=== PATIENT | female | born 1965 | race Caucasian/White ===

== ENCOUNTER 2021-10-28 08:31 | Emergency (ER) | payer OTHER ==
[~2021-10-28 08:31] MED LIST: AMLODIPINE BESYL5 MG PO; ASPIRIN EC81 MG PO; BACLOFEN20 MG PO; CETIRIZINE HCL10 MG PO; FLAGYL500 MG PO; FUROSEMIDE10 MG/1 M1 IVP; GABAPENTIN400 MG PO; HYDROCODON-ACE1 EAC6 PO; HYDROXYZINE PAM25 MG PO; KLONOPIN0.5 MG PO; LASIX40 MG PO; LEVOFLOXACIN500 MG PO; LIPITOR40 MG PO; LISINOPRIL2.5 MG PO; METOPROLOL TART25 MG PO; NICOTINE PATCH1 EAC1 TD; NITROGLYCERIN0.4 MG SL; NITROSTAT 0.40.4 MG SL; OMEPRAZOLE20 MG PO; VENLAFAXINE HCL75 M1 PO
[2021-10-28 09:17] LABS: HEMOGLOBIN 11.9 gm/dl (12.3-15.3); RED BLOOD COUNT 4.68 M/UL (4.00-5.10); WHITE BLOOD COUNT 10.7 K/UL (4.5-11.0)
[2021-10-28 09:46] LABS: BUN/CREATININE RATIO 8 (0-10)
== END 2021-10-28 11:00 | disposition home or self-care (01) ==
LOC: ER1 08:31
PROVIDERS: Physician Assistant
DX: M79.601 Pain in right arm (principal); M79.662 Pain in left lower leg; M54.2 Cervicalgia; I11.0 Hypertensive heart disease with heart failure; I50.9 Heart failure, unspecified; I25.2 Old myocardial infarction; F17.200 Nicotine dependence, unspecified, uncomplicated; J44.9 Chronic obstructive pulmonary disease, unspecified; E78.5 Hyperlipidemia, unspecified; Z88.0 Allergy status to penicillin
CPT/HCPCS: 71045; 80053; 82550; 82553; 83874; 84484; 85025; 93971; 99284

== ENCOUNTER 2021-12-17 12:43 | Emergency (ER) | payer OTHER ==
[~2021-12-17] VITALS: Ht 154.9 cm; Wt 59.0 kg
[2021-12-17 13:32] LABS: HEMOGLOBIN 11.2 gm/dl (12.3-15.3); RED BLOOD COUNT 4.78 M/UL (4.00-5.10); WHITE BLOOD COUNT 9.9 K/UL (4.5-11.0)
[2021-12-18] MEDS ORDERED: AMLODIPINE BESYL5 MG PO (11:12)
[2021-12-18] MEDS ORDERED: CARVEDILOL12.5 MG PO (11:12)
[2021-12-18] MEDS ORDERED: DOCUSATE SODIU100 MG PO (11:13)
[2021-12-18] MEDS ORDERED: CETIRIZINE HCL10 MG PO (11:13)
[2021-12-18] MEDS ORDERED: HYDROXYZINE PAM25 MG PO (11:15)
[2021-12-18] MEDS ORDERED: IPRAT-ALBUT 0.5-3 ML INH (11:15)
[2021-12-18] MEDS ORDERED: MIRALAX 119 GR119 GM PO (11:16)
[2021-12-18] MEDS ORDERED: LACTULOSE10 GM/15 M PO (11:16)
[2021-12-18] MEDS ORDERED: ASPIRIN EC81 MG PO (11:17)
[2021-12-18] MEDS ORDERED: SERTRALINE HCL50 MG PO (11:19)
[2021-12-18] MEDS ORDERED: QUETIAPINE FUMA25 MG PO (11:19)
[2021-12-18] MEDS ORDERED: FUROSEMIDE40 MG PO (11:19)
[2021-12-18] MEDS ORDERED: CYCLOBENZAPRINE10 MG PO (11:22)
[2021-12-19 08:12] LABS: CORTISOL 21.7 ug/dL (.)
== END 2021-12-19 10:15 | disposition short-term general hospital (02) ==
LOC: ER1 12:43
PROVIDERS: Family Medicine; Internal Medicine
DX: I21.4 Non-ST elevation (NSTEMI) myocardial infarction (principal); I24.9 Acute ischemic heart disease, unspecified; I50.9 Heart failure, unspecified; I25.10 Atherosclerotic heart disease of native coronary artery without angina pectoris; I25.5 Ischemic cardiomyopathy; N28.9 Disorder of kidney and ureter, unspecified; R79.89 Other specified abnormal findings of blood chemistry; E87.1 Hypo-osmolality and hyponatremia; Z20.822 Contact with and (suspected) exposure to COVID-19; F17.200 Nicotine dependence, unspecified, uncomplicated; Z88.0 Allergy status to penicillin; Z88.8 Allergy status to other drugs, medicaments and biological substances; Z91.14 Patient's other noncompliance with medication regimen
CPT/HCPCS: 0240U; 36556; 71045; 80048; 80053; 80307; 81001; 82533; 82550; 82553; 83605; 83735; 83880; 83930; 83935; 84439; 84443; 84484; 85025; 85610; 85730; 93005; 94664; 94760; 96374; 96375; 96376; 99285; C1751; J1160; J1644; J1940; J2270; Q0177